=== PATIENT | female | born 1980 | race Caucasian/White ===

== ENCOUNTER 2019-04-14 12:10 | Emergency (ER) | payer OTHER ==
--- NOTE | 2019-04-14 12:28 | ED ---
GI/ HPI - HPI Summary HPI Summary: This patient is a 38 year old female brought in by EMS presenting to [facility] with a chief complanit of flank pain since yesterday. She states she has back pain a few days ago but was unsure it was related to her current complaint. She states she has had kidney stones in the past and is confident that this is what it is. The patient reports nausea and vomiting. The pain radiates to the left to the LLQ. The patient rates her pain 3/10 in severity. The patient denies fever, chills, hematuria, dysuria, vaginal discharge, irregular bleeding. Sxs are moderate in severity. No current modifying factors. - History of Current Complaint Chief Complaint: EDFlankPain Time Seen by Provider: 04/14/19 12:20 Stated Complaint: KIDNEY STONES PER EMS Hx Obtained From: Patient Pain Intensity: 3 - Allergy/Home Medications Allergies/Adverse Reactions: Allergies Allergy/AdvReac Type Severity Reaction Status Date / Time carbamazepine [From Tegretol] Allergy Hives Verified 04/14/19 12:20 Home Medications: Home Medications Escitalopram * [Lexapro *] 20 mg PO DAILY 04/14/19 [History Confirmed 04/14/19] Gabapentin CAP(*) [Neurontin 100 mg CAP(*)] 200 mg PO TID PRN 04/14/19 [History Confirmed 04/14/19] predniSONE TAB* [Deltasone TAB*] 5 mg PO DAILY PRN 04/14/19 [History Confirmed 04/14/19] PMH/Surg Hx/FS Hx/Imm Hx Previously Healthy: Yes Cardiovascular History: Denies: Hx Hypertension Respiratory History: Denies: Hx Chronic Obstructive Pulmonary Disease (COPD) - Surgical History Surgery Procedure, Year, and Place: Appendectomy a couple years ago. Infectious Disease History: No Infectious Disease History: Denies: Traveled Outside the [place] in Last 30 Days - Family History Known Family History: Positive: Non-Contributory - Social History Occupation: Employed Full-time Lives: With Family Review of Systems Constitutional: Negative Negative: Fever, Chills Cardiovascular: Negative Negative: Chest Pain Respiratory: Negative Negative: Shortness Of Breath, Cough Positive: Abdominal Pain, Vomiting, Nausea Positive: flank pain, other - Denies irregular bleeding. Negative: dysuria, discharge, hematuria, urgency Positive: Other - Back pain All Other Systems Reviewed And Are Negative: Yes Physical Exam Triage Information Reviewed: Yes Vital Signs On Initial Exam: Initial Vitals Temp Pulse Resp BP Pulse Ox 97.7 F 59 19 125/73 97 04/14/19 12:17 04/14/19 12:17 04/14/19 12:17 04/14/19 12:17 04/14/19 12:17 Vital Signs Reviewed: Yes Appearance: Positive: Well-Appearing - Laying in bed in no acute distress. Skin: Positive: Warm, Dry Head/Face: Positive: Normal Head/Face Inspection Eyes: Positive: Normal, EOMI Neck: Positive: Supple Respiratory/Lung Sounds: Positive: Clear to Auscultation Cardiovascular: Positive: RRR Abdomen Description: Positive: Other: - Mild tenderness to the left lower quadrant and suprapubic region with guarding.. Negative: CVA Tenderness (R), CVA Tenderness (L) Neurological: Positive: Normal, CN Intact II-III Psychiatric: Positive: Affect/Mood Appropriate Diagnostics - Vital Signs Vital Signs Temp Pulse Resp BP Pulse Ox 04/14/19 12:17 97.7 F 59 19 125/73 97 - Laboratory Result Diagrams: 04/14/19 12:36 04/14/19 12:36 Lab Statement: Any lab studies that have been ordered have been reviewed, and results considered in the medical decision making process. GIGU Course/Dx - Course Course Of Treatment: Pt. presenting with LLQ pain and a hx of kidney stones. Pt. notes pain feels similar. Pt. received zofran in ambulance and nausea has improved. She rates her pain 1. Pt. states toradol has helped in the past. Will obtain basic labs, urine and u/s for further evaluation. Labs and urine unremarkable. Negative . 1400: HONEY Munroe notified me that pt. is requesting to immediately. U/S still pending. I went into pt.'s room and she is pulling at IV demanding for it to be removed and that she wanted to leave. I ask why pt. why she is upset and she states she does not feel well and wants to go home. I asked pt. to not pull her IV out as Shaneka is at beside to take IV out and pt. proceeds to pull IV out herself. Attempted to discuss results but pt. leaves room and exits ER. - Diagnoses Differential Diagnoses - Female: Ovarian Torsion, , Pelvic Inflammatory Disease, Renal Colic, Urinary Tract Infection Provider Diagnoses: Abdominal pain Discharge - Sign-Out/Discharge Documenting (check all that apply): Patient Departure Patient Received Moderate/Deep Sedation with Procedure: No - Discharge Plan Condition: Good Disposition: AGAINST MEDICAL ADVICE - Billing Disposition and Condition Condition: GOOD Disposition: Against Medical Advice - Attestation Statements Document Initiated by Scribe: Yes Documenting Scribe: Javier Marshall Provider For Whom Scribe is Documenting (Include Credential): MIKAYLA Miller Scribe Attestation: Javier Potts, scribed for MIKAYLA Miller on 04/14/19 at 1415. Scribe Documentation Reviewed: Yes Provider Attestation: The documentation as recorded by the Javier saini accurately reflects the service I personally performed and the decisions made by Pedro bejarano PAC Status of Scribrojas Document: Viewed
[2019-04-14] MEDS ORDERED: Ketorolac INJ* 30 MG/ML 1 ML VIAL IV PUSH ONE (12:30)
[2019-04-14 12:43] LABS: ABS Basophils 0.1 10^3/ul (0-0.2); ABS Eosinophils 0.4 10^3/ul (0-0.6); ABS Lymphocytes 1.4 10^3/ul (1.0-4.8); ABS Monocytes 0.3 10^3/ul (0-0.8); ABS Neutrophils 7.5 10^3/ul (1.5-7.7); Eosinophil % 4.1 %; Hematocrit 45 % (35-47); Hemoglobin 15.2 g/dL (12.0-16.0); Lymphocyte % 14.6 %; Mean Corpuscular HGB Conc 34 g/dL (31-36); Mean Corpuscular Hemoglobin 31 pg (27-31); Mean Corpuscular Volume 91 fL (80-97); Mean Platelet Volume 9.1 fL (7.4-10.4); Nucleated Red Blood Cells % 0.1; Platelet Count 192 10^3/uL (150-450); Red Blood Count 4.91 10^6 /uL (3.70-4.87); Red Cell Distribution Width 14 % (10-15); White Blood Count 9.7 10^3/uL (3.5-10.8)
[2019-04-14 12:59] LABS: ALT 11 U/L (7-52); AST 12 U/L (13-39); Albumin 3.7 g/dL (3.2-5.2); Albumin/Globulin Ratio 1.5 (1-3); Alkaline Phosphatase 91 U/L (34-104); Anion Gap 6 mmol/L (2-11); BUN/Creatinine Ratio 31.5 (8-20); Blood Urea Nitrogen 17 mg/dL (6-24); CO2 Carbon Dioxide 24 mmol/L (22-32); Calcium 8.8 mg/dL (8.6-10.3); Chloride 109 mmol/L (101-111); EGFR African American 152.1 (>60); EGFR Non-African American 125.7 (>60); Globulin 2.5 g/dL (2-4); Glucose 133 mg/dL (70-100); Potassium 4.1 mmol/L (3.5-5.0); Sodium 139 mmol/L (135-145); Total Protein 6.2 g/dL (6.4-8.9)
[2019-04-14 13:06] LABS: HCG Pregnancy < 0.60 mIU/mL
[2019-04-14 13:36] LABS: Urine Appearance Clear; Urine Bilirubin Negative (Negative); Urine Blood Negative (Negative); Urine Color Yellow; Urine Glucose Negative (Negative); Urine Ketones Negative (Negative); Urine Nitrite Negative (Negative); Urine Protein Negative (Negative); Urine Specific Gravity 1.028 (1.010-1.030); Urine Urobilinogen Negative (Negative)
[2019-04-14 14:16] VITALS: BP 0/0
== END 2019-04-14 14:14 | disposition left against medical advice (07) ==
LOC: ED 12:10
DX: R10.32 Left lower quadrant pain (principal); R11.2 Nausea with vomiting, unspecified; Z87.442 Personal history of urinary calculi; Z90.89 Acquired absence of other organs; Z88.8 Allergy status to other drugs, medicaments and biological substances
CPT/HCPCS: 36415; 76775; 80053; 81003; 84702; 85025; 96374; 99284; J1885